=== PATIENT | female | born 1945 | race Caucasian/White ===

== ENCOUNTER 2017-03-05 11:03 | Outpatient (CLI) | payer MEDICARE, BC ==
[2011-09-08 09:39] VITALS: BMI 34.7
== END 2017-03-05 11:41 ==
LOC: D.MAMMO 11:03
DX: Z12.31 Encounter for screening mammogram for malignant neoplasm of breast (principal)

== ENCOUNTER 2019-05-01 09:00 | Outpatient (CLI) | payer MEDICARE, OTHER ==
[2011-09-08 09:39] VITALS: BMI 34.7
== END 2019-05-01 10:00 | disposition home or self-care (01) ==
LOC: D.MAMMO 09:00
PROVIDERS: ATTEND Family Medicine
DX: Z12.31 Encounter for screening mammogram for malignant neoplasm of breast (principal)

== ENCOUNTER → 2020-06-06 13:12 | Outpatient (CLI) | payer MEDICARE, OTHER ==
[2011-09-08 09:39] VITALS: BMI 34.7
== END | disposition home or self-care (01) ==
LOC: D.HCCECHO 13:12
PROVIDERS: ATTEND Internal Medicine Cardiovascular Disease
DX: I48.91 Unspecified atrial fibrillation (principal)